=== PATIENT | female | born 1985 | race African-American/Black ===

== ENCOUNTER 2020-06-11 06:47 | Inpatient (IN) ==
[2020-06-06 11:24] LABS: Basophils % 0.8 % (0.0-0.8); Eosinophils # 0.3 10*3/uL (0.0-0.87); Eosinophils % 4.7 % (0.00-10.9); Hematocrit 40.7 VOL% (35.7-47.0); Hemoglobin 12.7 GM/DL (12.0-16.0); Immature Granulocytes % 0.4 %; Immature Granulocytes Absolute 0.02 #; Lymphocytes # 1.7 10*3/uL (1.4-4.0); Lymphocytes % 31.1 % (21.3-54.2); Mean Corpuscular HGB Conc 31.2 GM/DL (32-36); Mean Corpuscular Volume 82.9 FL (87-102); Mean Platelet Volume 9.8 FL (9.6-12.0); Monocytes % 6.8 % (1.7-12.7); Neutrophils % 56.2 % (38.7-73.9); Platelet Count 320 T/CUMM (130-400); Red Blood Count 4.91 MC/CUMM (3.8-5.5); Red Cell Distribution Width 16.8 % (9.3-17.3); White Blood Count 5.3 T/CUMM (4-12)
[2020-06-06 11:37] LABS: Albumin 3.7 G/DL (3.4-5.0); Bilirubin,Total 1.2 MG/DL (0.2-1.0); Calcium 9.2 MG/DL (8.5-10.1); Osmolality,Calculated 273.7 MOS/KG (273-304); Risk Ratio 4.87; Total Protein 8.3 G/DL (6.4-8.3); VLDL CHOLESTEROL 28.4 MG/DL
[2020-06-06 12:33] LABS: HIV Antigen/Antibody Result Nonreactive (Nonreactive)
[~2020-06-11 06:47] MED LIST: AMPICILLIN/SULBACTAM 3,000 MG in SODIUM CHLORIDE 0.9% 100 ML IV ONE
[2020-06-11] MEDS ORDERED: AMPICILLIN/SULBACTAM 3,000 MG VIAL ONE (08:11)
[2020-06-11] MEDS ORDERED: DIAZEPAM 5 MG TABLET PO ONE (08:13)
[2020-06-11] MEDS ORDERED: FAMOTIDINE 20 MG TABLET PO ONE (08:13)
[2020-06-11] MEDS ORDERED: FAMOTIDINE 20 MG TABLET ONE (08:15)
[2020-06-11] MEDS ORDERED: LACTATED RINGERS 1,000 ML IV SCH ×2 (08:30→10:30)
[2020-06-11] MEDS ORDERED: HYDROmorphone 2 MG/1 ML VIAL ONE (09:51)
[2020-06-11] MEDS ORDERED: LIDOCAINE 50 MG/5 ML SYRINGE ONE (09:58)
[2020-06-11] MEDS ORDERED: ROPIVACAINE 0.5% 30 ML VIAL ONE (09:58)
[2020-06-11] MEDS ORDERED: DEXAMETHASONE 4 MG/1 ML VIAL ONE ×2 (09:58→10:37)
[2020-06-11] MEDS ORDERED: BENZOCAINE/MENTHOL LOZENGE 18/BOX PO PRN (10:28)
[2020-06-11] MEDS ORDERED: BISACODYL 10 MG SUPP RECTAL PRN (10:28)
[2020-06-11] MEDS ORDERED: MAGNESIUM HYDROXIDE SUSP 30 ML UDCUP PO PRN (10:28)
[2020-06-11] MEDS ORDERED: ONDANSETRON 4 MG/2 ML VIAL IV PRN (10:28)
[2020-06-11] MEDS ORDERED: ACETAMINOPHEN 325 MG TABLET PO PRN (10:28)
[2020-06-11] MEDS ORDERED: HYDROmorphone 2 MG/1 ML VIAL IV PRN (10:30)
[2020-06-11 10:34] LABS: Amorphous Crystals,Urine Occasional /HPF (Few); Apearance,Urine Slightly Hazy (Clear); Bilirubin,Urine Negative (Negative); Blood, Urine Large mg/dL (Negative); Glucose,Urine (UA) Negative (Negative); Ketones,Urine Negative (Negative); Mucus,Urine Occasional /LPF (Occasional); Nitrite,Urine Negative (Negative); Protein,Urine Negative; RBC,Urine 1 /HPF (0-4); Squamous Epithelial Cell,Urine Many /HPF (0-10); Urine Color Yellow (Yellow); Urine Specific Gravity 1.013 (1.001-1.035); Urine Urobilinogen < 2.0 EU/DL (0.2-1.0); WBC,Urine <1 /HPF (0-6)
[2020-06-11] MEDS ORDERED: fentaNYL 100 MCG/2 ML VIAL ONE (10:37)
[2020-06-11] MEDS ORDERED: LIDOCAINE 2% 5 ML VIAL ONE (10:37)
[2020-06-11] MEDS ORDERED: DESFLURANE 1 UNIT/15 MINUTE INH ONE (10:37)
[2020-06-11] MEDS ORDERED: MIDAZOLAM 2 MG/2 ML VIAL ONE (10:37)
[2020-06-11] MEDS ORDERED: ONDANSETRON 4 MG/2 ML VIAL ONE (10:37)
[2020-06-11] MEDS ORDERED: KETOROLAC 30 MG/1 ML VIAL ONE (10:37)
[2020-06-11] MEDS ORDERED: propofoL 200 MG/20 ML VIAL IV ONE (10:37)
[2020-06-11] MEDS ORDERED: NEOSTIGMINE 10 MG/10 ML VIAL ONE (10:38)
[2020-06-11] MEDS ORDERED: GLYCOPYRROLATE 0.4 MG/2 ML VIAL ONE (10:38)
[2020-06-11] MEDS ORDERED: LACTATED RINGERS 1,000 ML IV ONE (10:38)
[2020-06-11] MEDS ORDERED: ROCURONIUM 100 MG/10 ML VIAL IV ONE (10:38)
[2020-06-11] MEDS ORDERED: ACETAMINOPHEN 1,000 MG/100 ML VIAL IV ONE (10:38)
[2020-06-11] MEDS ORDERED: ceFAZolin 1,000 MG in SYRINGE 1 EACH IV SCH (16:30)
[2020-06-11] MEDS ORDERED: SODIUM CHLORIDE 0.9% 100 ML IV ONE (17:32)
[2020-06-11] MEDS: ceFAZolin 1,000 MG in SYRINGE 1 EACH IV SCH (17:32)
[2020-06-11] MEDS ORDERED: SIMETHICONE CHEW 80 MG TABLET PO PRN (21:31)
[2020-06-12] MEDS: ceFAZolin 1,000 MG in SYRINGE 1 EACH IV SCH (02:17)
[2020-06-12] MEDS: IBUPROFEN 800 MG TABLET PO PRN (03:27)
[2020-06-12 06:14] LABS: Basophils % 0.1 % (0.0-0.8); Eosinophils % 0.1 % (0.00-10.9); Hematocrit 31.5 VOL% (35.7-47.0); Hemoglobin 10.5 GM/DL (12.0-16.0); Immature Granulocytes % 0.3 %; Immature Granulocytes Absolute 0.04 #; Lymphocytes # 1.9 10*3/uL (1.4-4.0); Lymphocytes % 16.2 % (21.3-54.2); Mean Corpuscular HGB Conc 33.3 GM/DL (32-36); Mean Corpuscular Volume 81.2 FL (87-102); Mean Platelet Volume 10.6 FL (9.6-12.0); Monocytes % 7.3 % (1.7-12.7); Platelet Count 229 T/CUMM (130-400); Red Blood Count 3.88 MC/CUMM (3.8-5.5); Red Cell Distribution Width 16.8 % (9.3-17.3); White Blood Count 11.7 T/CUMM (4-12)
[2020-06-12] MEDS ORDERED: METOCLOPRAMIDE 10 MG TABLET PO SCH (08:00)
[2020-06-12] MEDS: DOCUSATE SODIUM 100 MG CAPSULE PO PRN ×2 (09:32→20:50)
[2020-06-13] MEDS: IBUPROFEN 800 MG TABLET PO PRN (01:03)
[2020-06-13 07:49] VITALS: BP 138/83
== END 2020-06-13 14:45 | disposition home or self-care (01) | DRG 743 ==
LOC: N.OR 06:47 → N.SDSINP 08:35 → N.OB 08:35 → N.OR 09:13 → N.OB 15:14
PROVIDERS: ADMIT Obstetrics & Gynecology; ATTEND Obstetrics & Gynecology